=== PATIENT | female | born 1945 | race African-American/Black ===

== ENCOUNTER 2017-09-15 15:49 | Outpatient (CLI) | payer MEDICARE, MEDICAID ==
--- NOTE | 2017-09-15 19:19 | RAD ---
LUMBAR SPINE THREE LATERAL VIEWS: 09/15/17 INDICATION: Chronic low back pain. FINDINGS: There is no evidence of acute compression fracture or subluxation. There is mild degenerative changes throughout the lumbar spine. Vascular calcifications noted. IMPRESSION: No compression fracture or significant subluxation. No abnormal translational motion. POS: ELIEZER
--- NOTE | 2017-09-15 20:37 | MRI ---
MRI LUMBAR SPINE WITHOUT CONTRAST 09/15/17 Multiplanar and multisequential imaging lumbar spine obtained. HISTORY: Lumbar radiculopathy. Chronic low back pain. FINDINGS: The lumbar vertebrae maintain normal height and alignment. Vertebral body signal is normal. No eviden ce of edema or inflammatory process. No significant disc bulge at L1-2. At L2-3, mild disc bulge. No central canal or foraminal stenosis. At L3-4, mild disc bulge. Mild facet arthrosis. Mild central canal stenosis. At L4-5, there is an annular fissure with a diffuse disc bulge. Mild facet and ligamentous hypertroph y. Mild to moderate central canal stenosis. At L5-S1, diffuse disc bulge with central disc protrusion. Thecal sac is congenitally small, however this broad based bulge and protrusion impinges on both traversing S1 nerve roots. Bilateral foraminal encroachment more pronounced on the left due to the diffuse disc bulge. 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 This may represent a Tarlov cy st. It does not abut the facet joint and therefore, I do not confirm a synovial cyst. IMPRESSION: 1. Central canal stenosis at L4-5 and L5-S1 as described above due to diffuse disc bulge and dis c protrusions. Foraminal encroachment on the left at L5-S1. 2. 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 3. Incidentally noted are numerous renal cystic lesions bilaterally. There is also a cystic lesi on seen in the spleen which is incompletely evaluated. POS: LEVI
== END 2017-09-15 15:50 | disposition home or self-care (01) ==
LOC: MRI 15:49
PROVIDERS: ATTEND Neurological Surgery
DX: M51.16 Intervertebral disc disorders with radiculopathy, lumbar region (principal); M48.061 Spinal stenosis, lumbar region without neurogenic claudication; L05.91 Pilonidal cyst without abscess
CPT/HCPCS: 72100; 72148

== ENCOUNTER 2019-10-18 13:50 | Outpatient (CLI) | payer MEDICARE, MEDICAID ==
--- NOTE | 2019-10-18 14:32 | ULT ---
EXAM: Left lower extremity venous ultrasound HISTORY: Left lower extremity pain and edema COMPARISON: None TECHNIQUE: Multiplanar grayscale and color Doppler images were obtained in a left lower extremity marino ous ultrasound. Spectral analysis of the Doppler waveforms were performed. FINDINGS: The common femoral vein, profunda femoral vein, superficial femoral vein, and popliteal vei n are normal in appearance without visible thrombus. These vessels demonstrate normal compression, flow, and augmentation. The posterior tibial vein and greater saphenous vein are patent without evidence of thrombus. IMPRESSION: No evidence of DVT.
== END 2019-10-18 13:51 | disposition home or self-care (01) ==
LOC: BICULT 13:50
PROVIDERS: ATTEND Specialist
DX: I82.502 Chronic embolism and thrombosis of unspecified deep veins of left lower extremity (principal)

== ENCOUNTER 2021-09-26 15:13 | Inpatient (IN) | payer MEDICARE, OTHER ==
[2021-09-26] MEDS ORDERED: Acetaminophen 500 MG TAB ONE (16:02)
[2021-09-26] MEDS ORDERED: Ondansetron PF 4 MG/2 ML Vial ONE ×2 (16:02→20:11)
[2021-09-26 16:10] LABS: #Lymphocytes 1.7 thou/uL (1.20-3.40); #Monocytes 0.8 thou/uL (0.11-0.59); #Neutrophils 3.3 thou/uL (1.40-6.50); %Basophils 0.7 % (0.0-1.0); %Eosinophils 0.1 % (0.0-10.0); %Lymphocytes 29.5 % (21.0-51.0); %Monocytes 13.9 % (0.0-10.0); %Neutrophils 55.9 % (42.0-75.0); Hemoglobin 15.4 g/dL (12.0-16.0); Mean Corpuscular HGB CONC 32.7 g/dL (32.0-36.0); Mean Corpuscular Hemoglobin 30.3 pg (27.0-31.0); Mean Corpuscular Volume 92.8 fL (78.0-98.0); Mean Platelet Volume 8.6 fL (7.4-10.4); Platelet Count 177 thou/uL (130-400); RBC Distribution Width 13.9 % (11.5-14.5); Red Blood Cell (RBC) Count 5.08 mill/uL (4.20-5.40); White Blood Cell (WBC) Count 5.8 thou/uL (4.8-10.8)
[2021-09-26 16:34] LABS: ALT (SGPT) 15 U/L (8-55); AST (SGOT) 26 U/L (5-34); Albumin 3.6 g/dL (3.4-4.8); Alkaline Phosphatase 64 U/L (40-110); Anion Gap 19 mmol/L (10-20); BUN (Urea Nitrogen) 45 mg/dL (9.8-20.1); Bilirubin, Total 0.8 mg/dL (0.2-1.2); CK (CPK) 140 U/L (29-168); Calc. Creatinine Clearance 0 mL/min (70-130); Calcium 8.8 mg/dL (7.8-10.44); Carbon Dioxide 18 mmol/L (23-31); Chloride 99 mmol/L (98-107); Globulin 3.6 g/dL (2.4-3.5); Glucose 90 mg/dL (83-110); Lipase 21 U/L (8-78); Potassium 3.8 mmol/L (3.5-5.1); Protein, Total 7.2 g/dL (5.8-8.1); Sodium 132 mmol/L (136-145)
[2021-09-26 16:49] LABS: SARS-CoV-2 NAA Rapid Test DETECTED (NotDetected)
[2021-09-26 17:05] LABS: CKMB 2.3 ng/mL (0-6.6)
[2021-09-26] MEDS ORDERED: Azithromycin 500 MG VIAL ONE (17:33)
[2021-09-26] MEDS ORDERED: cefTRIAXone\\ROCEPHIN 2 GM VIAL ONE (17:33)
[2021-09-26] MEDS ORDERED: Ondansetron ODT 4 MG TAB PO PRN (18:36)
[2021-09-26] MEDS ORDERED: Ondansetron PF 4 MG/2 ML Vial IVP PRN (18:36)
[2021-09-26] MEDS ORDERED: Dexamethasone 4 MG TAB PO SCH (19:15)
[2021-09-26 19:49] LABS: Troponin I 0.341 ng/mL (< 0.028)
[2021-09-26] MEDS ORDERED: Sodium Chloride 0.9% 1,000 ML IV SCH (21:45)
[2021-09-26 22:09] VITALS: BMI 28.4
[2021-09-26] MEDS: Gabapentin 300 MG CAP PO SCH (22:41)
[2021-09-26] MEDS: Atorvastatin Calcium 40 MG TAB PO SCH (22:41)
[2021-09-26] MEDS: Cilostazol 100 MG TAB PO SCH (22:42)
[2021-09-26] MEDS: Metoprolol Tartrate 50 MG TAB PO SCH (22:42)
[2021-09-26] MEDS: Heparin 5,000 UNITS/ML VIAL SC SCH (22:42)
[2021-09-26 22:51] LABS: Troponin I 0.231 ng/mL (< 0.028)
[2021-09-26] MEDS: Pantoprazole 40 MG GRANULES PACKET PO SCH (23:15)
[2021-09-27 04:53] LABS: #Lymphocytes 0.7 thou/uL (1.20-3.40); #Monocytes 0.5 thou/uL (0.11-0.59); #Neutrophils 5.7 thou/uL (1.40-6.50); %Basophils 0.3 % (0.0-1.0); %Eosinophils 0.2 % (0.0-10.0); %Lymphocytes 10.5 % (21.0-51.0); %Monocytes 7.5 % (0.0-10.0); %Neutrophils 81.6 % (42.0-75.0); Hemoglobin 15.6 g/dL (12.0-16.0); Mean Corpuscular HGB CONC 32.3 g/dL (32.0-36.0); Mean Corpuscular Hemoglobin 29.9 pg (27.0-31.0); Mean Corpuscular Volume 92.8 fL (78.0-98.0); Mean Platelet Volume 8.6 fL (7.4-10.4); Platelet Count 125 thou/uL (130-400); RBC Distribution Width 13.7 % (11.5-14.5); Red Blood Cell (RBC) Count 5.21 mill/uL (4.20-5.40)
[2021-09-27 05:13] LABS: Anion Gap 16 mmol/L (10-20); BUN (Urea Nitrogen) 46 mg/dL (9.8-20.1); Calc. Creatinine Clearance 25 mL/min (70-130); Calcium 8.3 mg/dL (7.8-10.44); Carbon Dioxide 17 mmol/L (23-31); Chloride 103 mmol/L (98-107); Glucose 84 mg/dL (83-110); Potassium 3.7 mmol/L (3.5-5.1); Sodium 132 mmol/L (136-145)
[2021-09-27] MEDS: Heparin 5,000 UNITS/ML VIAL SC SCH ×3 (08:08→20:16)
[2021-09-27] MEDS: Cilostazol 100 MG TAB PO SCH ×2 (08:08→20:15)
[2021-09-27] MEDS: Gabapentin 300 MG CAP PO SCH ×3 (08:09→20:15)
[2021-09-27] MEDS: Amlodipine 5 MG TAB PO SCH (08:10)
[2021-09-27] MEDS: Dexamethasone 4 MG TAB PO SCH (08:10)
[2021-09-27] MEDS: Pantoprazole 40 MG GRANULES PACKET PO SCH (08:10)
[2021-09-27] MEDS: Metoprolol Tartrate 50 MG TAB PO SCH ×2 (08:10→20:15)
[2021-09-27] MEDS ORDERED: Sodium Chloride 0.9% 1,000 ML IV SCH (08:30)
[2021-09-27] MEDS ORDERED: Dextrose 5% in Water 1,000 ML IV PRN (09:48)
[2021-09-27] MEDS ORDERED: Dextrose 50% Abboject 50 ML SYRINGE SLOW IVP PRN (09:48)
[2021-09-27] MEDS ORDERED: HumaLOG 300 UNITS/3 ML VIAL SC PRN (09:48)
[2021-09-27] MEDS ORDERED: Fluticasone Propionate Nasal Spray 16 gm Bottle NASAL SCH (11:30)
[2021-09-27] MEDS ORDERED: Ergocalciferol 1.25 MG(50,000 UNITS) CAP PO SCH (12:00)
[2021-09-27] MEDS ORDERED: Metamucil PACK PO SCH (14:30)
[2021-09-27] MEDS: HumaLOG 300 UNITS/3 ML VIAL SC PRN (16:39)
[2021-09-27] MEDS: traMADol HCl 50 MG TAB PO PRN (16:45)
[2021-09-27] MEDS: Atorvastatin Calcium 40 MG TAB PO SCH (20:15)
[2021-09-28] MEDS: Metamucil PACK PO SCH (08:15)
[2021-09-28] MEDS: Gabapentin 300 MG CAP PO SCH ×3 (08:15→21:21)
[2021-09-28] MEDS: Metoprolol Tartrate 50 MG TAB PO SCH ×2 (08:15→21:21)
[2021-09-28] MEDS: Dexamethasone 4 MG TAB PO SCH (08:15)
[2021-09-28] MEDS: Heparin 5,000 UNITS/ML VIAL SC SCH ×3 (08:15→21:00)
[2021-09-28] MEDS: Amlodipine 5 MG TAB PO SCH (08:15)
[2021-09-28] MEDS: Pantoprazole 40 MG GRANULES PACKET PO SCH (08:16)
[2021-09-28] MEDS: Cilostazol 100 MG TAB PO SCH ×2 (08:16→21:21)
[2021-09-28] MEDS: Aspirin 81 mg Enteric Coated Tablet PO SCH (08:16)
[2021-09-28 10:14] LABS: Anion Gap 13 mmol/L (10-20); BUN (Urea Nitrogen) 44 mg/dL (9.8-20.1); Calc. Creatinine Clearance 33 mL/min (70-130); Calcium 8.2 mg/dL (7.8-10.44); Carbon Dioxide 21 mmol/L (23-31); Chloride 107 mmol/L (98-107); Glucose 128 mg/dL (83-110); Potassium 3.6 mmol/L (3.5-5.1); Sodium 137 mmol/L (136-145)
[2021-09-28] MEDS: traMADol HCl 50 MG TAB PO PRN (17:21)
[2021-09-28] MEDS: Atorvastatin Calcium 40 MG TAB PO SCH (21:21)
[2021-09-29 06:27] LABS: #Lymphocytes 0.5 thou/uL (1.20-3.40); #Monocytes 0.8 thou/uL (0.11-0.59); #Neutrophils 5.9 thou/uL (1.40-6.50); %Basophils 0.1 % (0.0-1.0); %Eosinophils 0.1 % (0.0-10.0); %Lymphocytes 6.2 % (21.0-51.0); %Monocytes 10.7 % (0.0-10.0); %Neutrophils 82.8 % (42.0-75.0); Hemoglobin 12.9 g/dL (12.0-16.0); Mean Corpuscular HGB CONC 33.2 g/dL (32.0-36.0); Mean Corpuscular Hemoglobin 30.3 pg (27.0-31.0); Mean Corpuscular Volume 91.4 fL (78.0-98.0); Mean Platelet Volume 8.6 fL (7.4-10.4); Platelet Count 149 thou/uL (130-400); RBC Distribution Width 13.6 % (11.5-14.5); Red Blood Cell (RBC) Count 4.25 mill/uL (4.20-5.40); White Blood Cell (WBC) Count 7.2 thou/uL (4.8-10.8)
[2021-09-29 06:50] LABS: Anion Gap 13 mmol/L (10-20); BUN (Urea Nitrogen) 38 mg/dL (9.8-20.1); Calc. Creatinine Clearance 38 mL/min (70-130); Calcium 7.9 mg/dL (7.8-10.44); Carbon Dioxide 18 mmol/L (23-31); Chloride 107 mmol/L (98-107); Glucose 116 mg/dL (83-110); Potassium 3.8 mmol/L (3.5-5.1); Sodium 134 mmol/L (136-145)
[2021-09-29] MEDS: Dexamethasone 4 MG TAB PO SCH (08:37)
[2021-09-29] MEDS: Gabapentin 300 MG CAP PO SCH ×3 (08:37→20:41)
[2021-09-29] MEDS: Cilostazol 100 MG TAB PO SCH ×2 (08:37→20:41)
[2021-09-29] MEDS: Metoprolol Tartrate 50 MG TAB PO SCH ×2 (08:37→20:41)
[2021-09-29] MEDS: Amlodipine 5 MG TAB PO SCH (08:37)
[2021-09-29] MEDS: Aspirin 81 mg Enteric Coated Tablet PO SCH (08:37)
[2021-09-29] MEDS: Pantoprazole 40 MG GRANULES PACKET PO SCH (08:38)
[2021-09-29] MEDS: Metamucil PACK PO SCH (08:38)
[2021-09-29] MEDS: Heparin 5,000 UNITS/ML VIAL SC SCH ×3 (08:38→20:41)
[2021-09-29] MEDS: Acetaminophen 325 MG TAB PO PRN (13:04)
[2021-09-29] MEDS: HumaLOG 300 UNITS/3 ML VIAL SC PRN (17:45)
[2021-09-29] MEDS: Atorvastatin Calcium 40 MG TAB PO SCH (20:41)
[2021-09-30 07:49] LABS: Anion Gap 12 mmol/L (10-20); BUN (Urea Nitrogen) 32 mg/dL (9.8-20.1); Calc. Creatinine Clearance 43 mL/min (70-130); Calcium 7.8 mg/dL (7.8-10.44); Carbon Dioxide 20 mmol/L (23-31); Chloride 107 mmol/L (98-107); Glucose 111 mg/dL (83-110); Potassium 3.8 mmol/L (3.5-5.1); Sodium 135 mmol/L (136-145)
[2021-09-30] MEDS: Dexamethasone 4 MG TAB PO SCH (08:16)
[2021-09-30] MEDS: Aspirin 81 mg Enteric Coated Tablet PO SCH (08:16)
[2021-09-30] MEDS: Metoprolol Tartrate 50 MG TAB PO SCH (08:16)
[2021-09-30] MEDS: Heparin 5,000 UNITS/ML VIAL SC SCH ×2 (08:16→14:30)
[2021-09-30] MEDS: Pantoprazole 40 MG GRANULES PACKET PO SCH (08:16)
[2021-09-30] MEDS: Gabapentin 300 MG CAP PO SCH ×2 (08:17→14:39)
[2021-09-30] MEDS: Acetaminophen 325 MG TAB PO PRN (08:17)
[2021-09-30] MEDS: Amlodipine 5 MG TAB PO SCH (08:17)
[2021-09-30] MEDS ORDERED: FLU VACC QS2021-22(65YR UP)/PF 240 MCG/0.7 ML SYRINGE IM ONE (09:00)
[2021-09-30] MEDS: Cilostazol 100 MG TAB PO SCH (09:43)
[2021-09-30] MEDS: traMADol HCl 50 MG TAB PO PRN (09:43)
[2021-09-30] MEDS: Metamucil PACK PO SCH (09:43)
[2021-09-30 17:57] VITALS: BP 120/69; TEMP 98
== END 2021-09-30 16:08 | disposition home or self-care (01) | DRG 177 ==
LOC: ERS 15:13 → 2NO 17:49 → OBSVTOIN 18:00 → 2SW 09-27 06:39 → T4-B 09-28 09:48 → T4-A 09-28 15:57 → T4-B 09-28 15:58
PROVIDERS: ADMIT Family Medicine; ATTEND Family Medicine
PROC: 8E0ZXY6 Isolation (ICD-10-PCS; principal; 2021-09-26)
PROC: 3E0DX3Z Introduction of Anti-inflammatory into Mouth and Pharynx, External Approach (ICD-10-PCS; 2021-09-26)
DX: U07.1 COVID-19 (principal); J12.82 Pneumonia due to coronavirus disease 2019; J96.01 Acute respiratory failure with hypoxia; N17.9 Acute kidney failure, unspecified; I24.8 Other forms of acute ischemic heart disease; F17.210 Nicotine dependence, cigarettes, uncomplicated; Z23 Encounter for immunization; E78.5 Hyperlipidemia, unspecified; F32.A Depression, unspecified; F41.9 Anxiety disorder, unspecified; G89.29 Other chronic pain; M48.00 Spinal stenosis, site unspecified; M81.0 Age-related osteoporosis without current pathological fracture; N18.30 Chronic kidney disease, stage 3 unspecified; E11.22 Type 2 diabetes mellitus with diabetic chronic kidney disease; E11.51 Type 2 diabetes mellitus with diabetic peripheral angiopathy without gangrene; I12.9 Hypertensive chronic kidney disease with stage 1 through stage 4 chronic kidney disease, or unspecified chronic kidney disease; Z91.040 Latex allergy status; Z88.8 Allergy status to other drugs, medicaments and biological substances; Z79.82 Long term (current) use of aspirin; Z79.899 Other long term (current) drug therapy; Z79.84 Long term (current) use of oral hypoglycemic drugs; Z79.52 Long term (current) use of systemic steroids; Z90.710 Acquired absence of both cervix and uterus
CPT/HCPCS: 0240U; 36415; 36416; 71045; 74176; 80048; 80053; 82550; 82553; 83605; 83690; 83735; 83880; 84484; 85025; 87040; 90471; 90662; 93005; 94760; 96365; 96366; 96367; 96375; 96376; G0008; J0456; J0696; J1644; J1815; J2405; J7050; J8540

== ENCOUNTER 2021-10-09 10:46 | Inpatient (IN) | payer MEDICARE, MEDICAID ==
[~2021-10-09 10:46] MED LIST: Iopamidol 370 76% 100 ML VIAL ONE
[2021-10-09] MEDS ORDERED: Dexamethasone 10 MG/ML VIAL ONE (11:05)
[2021-10-09] MEDS ORDERED: Dexamethasone 4 mg/ml Vial ONE (11:05)
[2021-10-09 11:20] LABS: Hemoglobin 13.5 g/dL (12.0-16.0); Mean Corpuscular HGB CONC 33.1 g/dL (32.0-36.0); Mean Corpuscular Hemoglobin 30.8 pg (27.0-31.0); Red Blood Cell (RBC) Count 4.37 mill/uL (4.20-5.40); White Blood Cell (WBC) Count 16.2 thou/uL (4.8-10.8)
[2021-10-09 11:20] LABS: Actual Bicarbonate (HCO3a) 15.6 mEq/L (22-28); Analyzer IN Cardio ER; Base Excess (BEa) -6.9 mEq/L (-2.0 to +3.0); Calcium, Ionized (arterial) 1.19 mmol/L (1.12-1.30); Carboxyhemoglobin (COHb) 1.2 gm% (0.0-3.0); Hemoglobin (Hb) 12.7 g/dL (12.0-16.0); pH, Arterial 7.43 (7.35-7.45)
[2021-10-09 11:22] LABS: ALV-art Gradient 212.025 mmHg (0-20); CO2 Tension 23.9 mmHg (35.0-45.0); O2 Tension (PaO2), arterial 43.3 mmHg (> 70.0); Puncture Site RBA
[2021-10-09 11:38] LABS: ALT (SGPT) 19 U/L (8-55); AST (SGOT) 30 U/L (5-34); Albumin 2.9 g/dL (3.4-4.8); Alkaline Phosphatase 210 U/L (40-110); Anion Gap 17 mmol/L (10-20); BUN (Urea Nitrogen) 30 mg/dL (9.8-20.1); Calc. Creatinine Clearance 0 mL/min (70-130); Calcium 9.3 mg/dL (7.8-10.44); Carbon Dioxide 17 mmol/L (23-31); Chloride 107 mmol/L (98-107); Glucose 106 mg/dL (83-110); Potassium 3.8 mmol/L (3.5-5.1); Protein, Total 6.9 g/dL (5.8-8.1); Sodium 137 mmol/L (136-145)
[2021-10-09 11:39] LABS: #Eosinphils 0.2 thou/uL (0.0-0.7); #Lymphocytes 2.3 thou/uL (1.20-3.40); #Neutrophils 12.6 thou/uL (1.40-6.50); %Basophils 0.3 % (0.0-1.0); %Eosinophils 1.1 % (0.0-10.0); %Lymphocytes 13.9 % (21.0-51.0); %Monocytes 6.4 % (0.0-10.0); %Neutrophils 78.3 % (42.0-75.0); Band 4 % (5-11); Burr Cells SLIGHT = 2-5 cells (100X) (0-1/hpf); Eosinophils 4 % (0-10); Lymphocytes 14 % (21-51); MDiff Complete? YES; Mean Platelet Volume 8.4 fL (7.4-10.4); Monocytes 5 % (0-10); Myelocyte 1 % (0-0); Neutrophil 72 % (42-75); Platelet Count 87 thou/uL (130-400); Platelet Morphology Comment Appears Decreased; RBC Distribution Width 16.3 % (11.5-14.5); Schistocytes SLIGHT = 2-5 cells (100X) (0-1/hpf)
[2021-10-09 11:44] LABS: ALT (SGPT) 18 U/L (8-55); AST (SGOT) 30 U/L (5-34); Alkaline Phosphatase 219 U/L (40-110); Anion Gap 16 mmol/L (10-20); BUN (Urea Nitrogen) 31 mg/dL (9.8-20.1); Bilirubin, Total 3.1 mg/dL (0.2-1.2); Calc. Creatinine Clearance 0 mL/min (70-130); Calcium 9.1 mg/dL (7.8-10.44); Carbon Dioxide 18 mmol/L (23-31); Chloride 107 mmol/L (98-107); Globulin 3.9 g/dL (2.4-3.5); Glucose 106 mg/dL (83-110); Lipase 27 U/L (8-78); Magnesium 1.4 mg/dL (1.6-2.6); Potassium 3.9 mmol/L (3.5-5.1); Protein, Total 6.9 g/dL (5.8-8.1); Sodium 137 mmol/L (136-145)
[2021-10-09] MEDS ORDERED: Lorazepam 2 MG/ML VIAL ONE (11:47)
[2021-10-09 12:32] LABS: CKMB 13.1 ng/mL (0-6.6)
[2021-10-09] MEDS ORDERED: Dextrose 5% in Water 1,000 ML IV PRN (13:10)
[2021-10-09] MEDS ORDERED: Dextrose 50% Abboject 50 ML SYRINGE SLOW IVP PRN (13:10)
[2021-10-09] MEDS ORDERED: HumaLOG 300 UNITS/3 ML VIAL SC PRN (13:10)
[2021-10-09] MEDS ORDERED: Acetaminophen 650 MG Suppository PR PRN (13:10)
[2021-10-09] MEDS ORDERED: Ondansetron ORAL SOLN. 4 MG/5 ML UDCUP PO PRN (13:16)
[2021-10-09] MEDS ORDERED: Heparin 10,000 UNITS/ 10 ML VIAL SLOW IVP SCH (13:45)
[2021-10-09] MEDS ORDERED: Heparin 25,000 units/D5W 500 ML IVPB SCH (13:45)
[2021-10-09 14:21] LABS: Hemoglobin 12.4 g/dL (12.0-16.0); Platelet Count 75 thou/uL (130-400)
[2021-10-09 14:32] LABS: INR-International Normal Ratio 1.5; PTT 29.9 sec (22.9-36.1)
[2021-10-09 14:59] LABS: Critical Call Chem Troponin I RESULT DECREASING; Troponin I 2.717 ng/mL (< 0.028)
[2021-10-09] MEDS ORDERED: Heparin 5,000 UNITS/ML VIAL SC SCH ×2 (15:00→21:00)
[2021-10-09] MEDS ORDERED: BARICITINIB 2 MG TAB PO SCH (15:00)
[2021-10-09] MEDS ORDERED: traMADol HCl 50 MG TAB PO PRN (15:29)
[2021-10-09] MEDS ORDERED: Gabapentin 300 MG CAP PO PRN (15:29)
[2021-10-09] MEDS ORDERED: Polyethylene Glycol 3350 17 GM Packet PO PRN (15:29)
[2021-10-09] MEDS ORDERED: Alendronate Sodium 70 mg Tablet PO SCH (15:30)
[2021-10-09] MEDS ORDERED: Lactated Ringer's 500 ML IV SCH (16:15)
[2021-10-09] MEDS ORDERED: Cilostazol 100 MG TAB PO SCH (16:30)
[2021-10-09] MEDS ORDERED: Magnesium 2 GM/50 ML 2 GM in Premix Bag 1 BAG IVPB SCH (16:30)
[2021-10-09] MEDS ORDERED: Magnesium Sulfate 2 GM in Sodium Chloride 0.9% 100 ML IVPB SCH (16:30)
[2021-10-09] MEDS: Famotidine 20 MG TAB PO SCH (17:08)
[2021-10-09] MEDS: Lactated Ringer's 1,000 ML IV SCH (17:09)
[2021-10-09 17:50] LABS: Troponin I 2.525 ng/mL (< 0.028)
[2021-10-09 17:52] LABS: Lactic Acid 1.6 mmol/L (0.5-2.2)
[2021-10-09] MEDS: Metoprolol Tartrate 50 MG TAB PO SCH (20:32)
[2021-10-09] MEDS: Heparin 5,000 UNITS/ML VIAL SC SCH (20:47)
[2021-10-10] MEDS: Lactated Ringer's 1,000 ML IV SCH ×2 (01:01→19:30)
[2021-10-10 04:04] LABS: Anion Gap 12 mmol/L (10-20); BUN (Urea Nitrogen) 30 mg/dL (9.8-20.1); Calc. Creatinine Clearance 47 mL/min (70-130); Calcium 8.7 mg/dL (7.8-10.44); Carbon Dioxide 19 mmol/L (23-31); Chloride 110 mmol/L (98-107); Glucose 109 mg/dL (83-110); Magnesium 2.1 mg/dL (1.6-2.6); Potassium 4.2 mmol/L (3.5-5.1); Sodium 137 mmol/L (136-145)
[2021-10-10 04:14] LABS: Hemoglobin 11.6 g/dL (12.0-16.0); Hypochromia SLIGHT = 6-15 cells (100X) (0-5/hpf); Lymphocytes 11 % (21-51); MDiff Complete? YES; Mean Corpuscular HGB CONC 33.6 g/dL (32.0-36.0); Mean Corpuscular Volume 92.3 fL (78.0-98.0); Monocytes 5 % (0-10); Neutrophil 84 % (42-75); Platelet Count 62 thou/uL (130-400); Platelet Morphology Comment Appears Decreased; RBC Distribution Width 15.6 % (11.5-14.5); Red Blood Cell (RBC) Count 3.74 mill/uL (4.20-5.40); White Blood Cell (WBC) Count 7.9 thou/uL (4.8-10.8)
[2021-10-10] MEDS ORDERED: Dexamethasone 10 MG/ML VIAL SLOW IVP SCH (09:00)
[2021-10-10] MEDS ORDERED: Dexamethasone 10 MG in Sodium Chloride 0.9% 50 ML IVPB SCH (09:00)
[2021-10-10] MEDS ORDERED: metFORMIN 500 MG TAB PO SCH (09:00)
[2021-10-10] MEDS: Heparin 5,000 UNITS/ML VIAL SC SCH ×2 (09:59→20:56)
[2021-10-10] MEDS: Fluticasone Propionate Nasal Spray 16 gm Bottle NASAL SCH (09:59)
[2021-10-10] MEDS: Amlodipine 5 MG TAB PO SCH (11:02)
[2021-10-10] MEDS: Losartan 25 MG TAB PO SCH (11:04)
[2021-10-10] MEDS: BARICITINIB 2 MG TAB PO SCH (11:04)
[2021-10-10] MEDS: Aspirin 81 mg Enteric Coated Tablet PO SCH (11:04)
[2021-10-10] MEDS: Hydrochlorothiazide 25 MG TAB PO SCH (11:05)
[2021-10-10] MEDS: Metoprolol Tartrate 50 MG TAB PO SCH ×2 (11:07→20:56)
[2021-10-10] MEDS: Atorvastatin Calcium 40 MG TAB PO SCH (11:07)
[2021-10-10] MEDS: Dexamethasone 10 MG/ML VIAL SLOW IVP SCH (11:07)
[2021-10-10] MEDS: Famotidine 20 MG TAB PO SCH (11:19)
[2021-10-10] MEDS: Acetaminophen 325 MG TAB PO PRN (14:37)
[2021-10-11 04:17] LABS: #Lymphocytes 0.8 thou/uL (1.20-3.40); #Monocytes 0.6 thou/uL (0.11-0.59); #Neutrophils 4.8 thou/uL (1.40-6.50); %Basophils 0.3 % (0.0-1.0); %Eosinophils 0.3 % (0.0-10.0); %Lymphocytes 12.7 % (21.0-51.0); %Monocytes 9.9 % (0.0-10.0); %Neutrophils 76.8 % (42.0-75.0); Hemoglobin 9.5 g/dL (12.0-16.0); Mean Corpuscular HGB CONC 32.7 g/dL (32.0-36.0); Mean Corpuscular Hemoglobin 30.4 pg (27.0-31.0); Mean Platelet Volume 9.2 fL (7.4-10.4); Platelet Count 70 thou/uL (130-400); RBC Distribution Width 15.3 % (11.5-14.5); Red Blood Cell (RBC) Count 3.14 mill/uL (4.20-5.40); White Blood Cell (WBC) Count 6.2 thou/uL (4.8-10.8)
[2021-10-11 04:50] LABS: Anion Gap 13 mmol/L (10-20); BUN (Urea Nitrogen) 36 mg/dL (9.8-20.1); Calc. Creatinine Clearance 43 mL/min (70-130); Calcium 8.3 mg/dL (7.8-10.44); Carbon Dioxide 18 mmol/L (23-31); Cardiac Risk 3.6 (Less than 4.5); Chloride 109 mmol/L (98-107); Cholesterol 152 mg/dl (< 200 Desired); Glucose 95 mg/dL (83-110); HDL Cholesterol 42 mg/dL (>60 Neg Risk); LDL Cholesterol, Calculated 92 mg/dL; Potassium 4.3 mmol/L (3.5-5.1); Sodium 136 mmol/L (136-145); Triglycerides 92 mg/dL (Less than 150)
[2021-10-11] MEDS: traMADol HCl 50 MG TAB PO PRN ×2 (05:20→14:14)
[2021-10-11] MEDS: Atorvastatin Calcium 40 MG TAB PO SCH ×2 (09:52→20:37)
[2021-10-11] MEDS: Losartan 25 MG TAB PO SCH (09:52)
[2021-10-11] MEDS: Famotidine 20 MG TAB PO SCH (09:52)
[2021-10-11] MEDS: Aspirin 81 mg Enteric Coated Tablet PO SCH (09:52)
[2021-10-11] MEDS: Dexamethasone 10 MG/ML VIAL SLOW IVP SCH (09:52)
[2021-10-11] MEDS: BARICITINIB 2 MG TAB PO SCH (09:52)
[2021-10-11] MEDS: Amlodipine 5 MG TAB PO SCH (09:53)
[2021-10-11] MEDS: Hydrochlorothiazide 25 MG TAB PO SCH (09:53)
[2021-10-11] MEDS: Fluticasone Propionate Nasal Spray 16 gm Bottle NASAL SCH (09:54)
[2021-10-11] MEDS: Heparin 5,000 UNITS/ML VIAL SC SCH ×2 (09:54→20:33)
[2021-10-11] MEDS: Metoprolol Tartrate 50 MG TAB PO SCH ×2 (09:55→20:36)
[2021-10-11] MEDS: Lactated Ringer's 1,000 ML IV SCH (12:48)
[2021-10-11] MEDS: Acetaminophen 325 MG TAB PO PRN (14:14)
[2021-10-11 15:41] LABS: Magnesium 1.9 mg/dL (1.6-2.6)
[2021-10-12 03:37] LABS: Hemoglobin 10.1 g/dL (12.0-16.0); Platelet Count 86 thou/uL (130-400)
[2021-10-12 04:03] LABS: Anion Gap 13 mmol/L (10-20); BUN (Urea Nitrogen) 30 mg/dL (9.8-20.1); Calc. Creatinine Clearance 51 mL/min (70-130); Calcium 8.6 mg/dL (7.8-10.44); Carbon Dioxide 19 mmol/L (23-31); Chloride 107 mmol/L (98-107); Glucose 89 mg/dL (83-110); Magnesium 1.9 mg/dL (1.6-2.6); Potassium 4.2 mmol/L (3.5-5.1); Sodium 135 mmol/L (136-145)
[2021-10-12] MEDS: Lactated Ringer's 1,000 ML IV SCH (08:48)
[2021-10-12] MEDS: Dexamethasone 10 MG/ML VIAL SLOW IVP SCH (08:48)
[2021-10-12] MEDS: Losartan 25 MG TAB PO SCH (08:49)
[2021-10-12] MEDS: BARICITINIB 2 MG TAB PO SCH (08:49)
[2021-10-12] MEDS: Famotidine 20 MG TAB PO SCH (08:49)
[2021-10-12] MEDS: Metoprolol Tartrate 50 MG TAB PO SCH ×2 (08:50→20:02)
[2021-10-12] MEDS: Hydrochlorothiazide 25 MG TAB PO SCH (08:50)
[2021-10-12] MEDS: Amlodipine 5 MG TAB PO SCH (08:50)
[2021-10-12] MEDS: traMADol HCl 50 MG TAB PO PRN (08:51)
[2021-10-12] MEDS: Aspirin 81 mg Enteric Coated Tablet PO SCH (08:51)
[2021-10-12] MEDS: Fluticasone Propionate Nasal Spray 16 gm Bottle NASAL SCH (15:23)
[2021-10-12] MEDS: Atorvastatin Calcium 40 MG TAB PO SCH (20:04)
[2021-10-13] MEDS: Lactated Ringer's 1,000 ML IV SCH ×2 (01:43→23:04)
[2021-10-13 04:23] LABS: ALT (SGPT) 16 U/L (8-55); AST (SGOT) 21 U/L (5-34); Albumin 2.5 g/dL (3.4-4.8); Alkaline Phosphatase 187 U/L (40-110); Anion Gap 12 mmol/L (10-20); BUN (Urea Nitrogen) 32 mg/dL (9.8-20.1); Bilirubin, Total 2.2 mg/dL (0.2-1.2); Calc. Creatinine Clearance 49 mL/min (70-130); Calcium 8.8 mg/dL (7.8-10.44); Carbon Dioxide 22 mmol/L (23-31); Chloride 106 mmol/L (98-107); Globulin 3.2 g/dL (2.4-3.5); Glucose 64 mg/dL (83-110); Protein, Total 5.7 g/dL (5.8-8.1); Sodium 136 mmol/L (136-145)
[2021-10-13 08:29] LABS: #Eosinphils 0.2 thou/uL (0.0-0.7); #Lymphocytes 1.5 thou/uL (1.20-3.40); #Monocytes 0.5 thou/uL (0.11-0.59); #Neutrophils 6.5 thou/uL (1.40-6.50); %Basophils 0.2 % (0.0-1.0); %Eosinophils 1.8 % (0.0-10.0); %Lymphocytes 16.8 % (21.0-51.0); %Monocytes 6.3 % (0.0-10.0); Hemoglobin 10.8 g/dL (12.0-16.0); Mean Corpuscular HGB CONC 33.8 g/dL (32.0-36.0); Mean Corpuscular Hemoglobin 30.8 pg (27.0-31.0); Mean Corpuscular Volume 91.2 fL (78.0-98.0); Mean Platelet Volume 5.7 fL (7.4-10.4); Platelet Count 69 thou/uL (130-400); Red Blood Cell (RBC) Count 3.52 mill/uL (4.20-5.40); White Blood Cell (WBC) Count 8.6 thou/uL (4.8-10.8)
[2021-10-13] MEDS: Metoprolol Tartrate 50 MG TAB PO SCH ×2 (10:08→20:28)
[2021-10-13] MEDS: Amlodipine 5 MG TAB PO SCH (10:09)
[2021-10-13] MEDS: Aspirin 81 mg Enteric Coated Tablet PO SCH (10:09)
[2021-10-13] MEDS: Hydrochlorothiazide 25 MG TAB PO SCH (10:09)
[2021-10-13] MEDS: BARICITINIB 2 MG TAB PO SCH (10:09)
[2021-10-13] MEDS: Losartan 25 MG TAB PO SCH (10:09)
[2021-10-13] MEDS: Famotidine 20 MG TAB PO SCH (10:11)
[2021-10-13] MEDS: Dexamethasone 10 MG/ML VIAL SLOW IVP SCH (10:11)
[2021-10-13] MEDS: traMADol HCl 50 MG TAB PO PRN (14:11)
[2021-10-13] MEDS: Fluticasone Propionate Nasal Spray 16 gm Bottle NASAL SCH (18:37)
[2021-10-13] MEDS: Atorvastatin Calcium 40 MG TAB PO SCH (20:28)
[2021-10-14 03:54] LABS: Platelet Count 79 thou/uL (130-400)
[2021-10-14 04:03] LABS: ALT (SGPT) 17 U/L (8-55); AST (SGOT) 19 U/L (5-34); Albumin 2.6 g/dL (3.4-4.8); Alkaline Phosphatase 163 U/L (40-110); Anion Gap 13 mmol/L (10-20); BUN (Urea Nitrogen) 31 mg/dL (9.8-20.1); Bilirubin, Total 1.8 mg/dL (0.2-1.2); Calc. Creatinine Clearance 51 mL/min (70-130); Calcium 9.3 mg/dL (7.8-10.44); Carbon Dioxide 23 mmol/L (23-31); Chloride 104 mmol/L (98-107); Glucose 81 mg/dL (83-110); Protein, Total 5.6 g/dL (5.8-8.1); Sodium 136 mmol/L (136-145)
[2021-10-14] MEDS: Losartan 25 MG TAB PO SCH (08:09)
[2021-10-14] MEDS: Aspirin 81 mg Enteric Coated Tablet PO SCH (08:09)
[2021-10-14] MEDS: BARICITINIB 2 MG TAB PO SCH (08:09)
[2021-10-14] MEDS: Amlodipine 5 MG TAB PO SCH (08:09)
[2021-10-14] MEDS: Hydrochlorothiazide 25 MG TAB PO SCH (08:09)
[2021-10-14] MEDS: Famotidine 20 MG TAB PO SCH (08:09)
[2021-10-14] MEDS: Dexamethasone 10 MG/ML VIAL SLOW IVP SCH (08:10)
[2021-10-14] MEDS: Fluticasone Propionate Nasal Spray 16 gm Bottle NASAL SCH (08:10)
[2021-10-14] MEDS: Metoprolol Tartrate 50 MG TAB PO SCH ×2 (08:10→20:30)
[2021-10-14] MEDS ORDERED: Fondaparinux Sodium 2.5 MG/0.5 ML SYRINGE SC SCH (08:30)
[2021-10-14] MEDS: Acetaminophen 325 MG TAB PO PRN (08:35)
[2021-10-14 14:33] VITALS: BMI 25.7
[2021-10-14] MEDS: Gabapentin 300 MG CAP PO SCH ×2 (16:22→20:30)
[2021-10-14] MEDS: Atorvastatin Calcium 40 MG TAB PO SCH (20:30)
[2021-10-15] MEDS: Fondaparinux Sodium 2.5 MG/0.5 ML SYRINGE SC SCH (05:51)
[2021-10-15 06:46] LABS: Platelet Count 131 thou/uL (130-400)
[2021-10-15 07:07] LABS: ALT (SGPT) 21 U/L (8-55); AST (SGOT) 21 U/L (5-34); Albumin 2.7 g/dL (3.4-4.8); Alkaline Phosphatase 145 U/L (40-110); Anion Gap 15 mmol/L (10-20); BUN (Urea Nitrogen) 30 mg/dL (9.8-20.1); Bilirubin, Total 2.1 mg/dL (0.2-1.2); Calc. Creatinine Clearance 48 mL/min (70-130); Calcium 9.2 mg/dL (7.8-10.44); Carbon Dioxide 24 mmol/L (23-31); Chloride 103 mmol/L (98-107); Globulin 3.3 g/dL (2.4-3.5); Glucose 77 mg/dL (83-110); Potassium 4.3 mmol/L (3.5-5.1); Sodium 138 mmol/L (136-145)
[2021-10-15] MEDS: Losartan 25 MG TAB PO SCH (08:34)
[2021-10-15] MEDS: Metoprolol Tartrate 50 MG TAB PO SCH ×2 (08:34→21:31)
[2021-10-15] MEDS: Famotidine 20 MG TAB PO SCH (08:34)
[2021-10-15] MEDS: Hydrochlorothiazide 25 MG TAB PO SCH (08:34)
[2021-10-15] MEDS: BARICITINIB 2 MG TAB PO SCH (08:34)
[2021-10-15] MEDS: Aspirin 81 mg Enteric Coated Tablet PO SCH (08:34)
[2021-10-15] MEDS: Gabapentin 300 MG CAP PO SCH ×3 (08:35→21:31)
[2021-10-15] MEDS: Fluticasone Propionate Nasal Spray 16 gm Bottle NASAL SCH (08:35)
[2021-10-15] MEDS: Dexamethasone 10 MG/ML VIAL SLOW IVP SCH (08:35)
[2021-10-15] MEDS: Amlodipine 10 MG TAB PO SCH (08:36)
[2021-10-15] MEDS: Atorvastatin Calcium 40 MG TAB PO SCH (21:30)
[2021-10-15] MEDS: traMADol HCl 50 MG TAB PO PRN (21:30)
[2021-10-16] MEDS: Fondaparinux Sodium 2.5 MG/0.5 ML SYRINGE SC SCH (06:41)
[2021-10-16 06:56] LABS: Hemoglobin 11.9 g/dL (12.0-16.0); Platelet Count 193 thou/uL (130-400)
[2021-10-16 07:08] LABS: ALT (SGPT) 24 U/L (8-55); AST (SGOT) 23 U/L (5-34); Alkaline Phosphatase 137 U/L (40-110); Anion Gap 13 mmol/L (10-20); BUN (Urea Nitrogen) 31 mg/dL (9.8-20.1); Bilirubin, Total 1.7 mg/dL (0.2-1.2); Calc. Creatinine Clearance 44 mL/min (70-130); Calcium 9.2 mg/dL (7.8-10.44); Carbon Dioxide 24 mmol/L (23-31); Chloride 103 mmol/L (98-107); Globulin 3.7 g/dL (2.4-3.5); Glucose 78 mg/dL (83-110); Potassium 3.9 mmol/L (3.5-5.1); Protein, Total 6.7 g/dL (5.8-8.1); Sodium 136 mmol/L (136-145)
[2021-10-16] MEDS: Losartan 25 MG TAB PO SCH (08:02)
[2021-10-16] MEDS: Aspirin 81 mg Enteric Coated Tablet PO SCH (08:02)
[2021-10-16] MEDS: Dexamethasone 4 MG TAB PO SCH (08:03)
[2021-10-16] MEDS: Amlodipine 10 MG TAB PO SCH (08:03)
[2021-10-16] MEDS: BARICITINIB 2 MG TAB PO SCH (08:03)
[2021-10-16] MEDS: Hydrochlorothiazide 25 MG TAB PO SCH (08:04)
[2021-10-16] MEDS: Metoprolol Tartrate 50 MG TAB PO SCH ×2 (08:04→21:10)
[2021-10-16] MEDS: Gabapentin 300 MG CAP PO SCH ×3 (08:05→21:10)
[2021-10-16] MEDS: Famotidine 20 MG TAB PO SCH (08:08)
[2021-10-16] MEDS: Fluticasone Propionate Nasal Spray 16 gm Bottle NASAL SCH (08:09)
[2021-10-16] MEDS: HumaLOG 300 UNITS/3 ML VIAL SC PRN (16:28)
[2021-10-16] MEDS: Atorvastatin Calcium 40 MG TAB PO SCH (21:09)
[2021-10-17] MEDS: Fondaparinux Sodium 2.5 MG/0.5 ML SYRINGE SC SCH (06:15)
[2021-10-17] MEDS: Famotidine 20 MG TAB PO SCH (08:40)
[2021-10-17] MEDS: Amlodipine 10 MG TAB PO SCH (08:40)
[2021-10-17] MEDS: BARICITINIB 2 MG TAB PO SCH (08:41)
[2021-10-17] MEDS: Dexamethasone 4 MG TAB PO SCH (08:41)
[2021-10-17] MEDS: Gabapentin 300 MG CAP PO SCH ×3 (08:42→21:00)
[2021-10-17] MEDS: Aspirin 81 mg Enteric Coated Tablet PO SCH (08:43)
[2021-10-17] MEDS: Losartan 25 MG TAB PO SCH (08:43)
[2021-10-17] MEDS: Metoprolol Tartrate 50 MG TAB PO SCH ×2 (08:43→21:00)
[2021-10-17] MEDS: Hydrochlorothiazide 25 MG TAB PO SCH (08:43)
[2021-10-17] MEDS: Fluticasone Propionate Nasal Spray 16 gm Bottle NASAL SCH (08:44)
[2021-10-17] MEDS: traMADol HCl 50 MG TAB PO PRN (08:48)
[2021-10-17] MEDS: HumaLOG 300 UNITS/3 ML VIAL SC PRN (18:18)
[2021-10-17] MEDS: Atorvastatin Calcium 40 MG TAB PO SCH (20:59)
[2021-10-18] MEDS: Fondaparinux Sodium 2.5 MG/0.5 ML SYRINGE SC SCH (05:17)
[2021-10-18] MEDS: Metoprolol Tartrate 50 MG TAB PO SCH (10:15)
[2021-10-18] MEDS: Aspirin 81 mg Enteric Coated Tablet PO SCH (10:15)
[2021-10-18] MEDS: Famotidine 20 MG TAB PO SCH (10:15)
[2021-10-18] MEDS: Dexamethasone 4 MG TAB PO SCH (10:15)
[2021-10-18] MEDS: BARICITINIB 2 MG TAB PO SCH (10:16)
[2021-10-18] MEDS: Losartan 25 MG TAB PO SCH (10:16)
[2021-10-18] MEDS: Hydrochlorothiazide 25 MG TAB PO SCH (10:16)
[2021-10-18] MEDS: Gabapentin 300 MG CAP PO SCH (10:17)
[2021-10-18] MEDS: Fluticasone Propionate Nasal Spray 16 gm Bottle NASAL SCH (10:17)
[2021-10-18] MEDS: Amlodipine 10 MG TAB PO SCH (10:17)
[2021-10-18 13:41] VITALS: BP 128/79; TEMP 98
[2021-10-20 16:37] LABS: Heparin-Induced Ab (HITA) 0.103 OD (0.000-0.400)
== END 2021-10-18 14:30 | disposition home or self-care (01) | DRG 871 ==
LOC: ERS 10:46 → CCU 12:39 → IMCU/EMU 10-13 06:45 → T4-B 10-15 20:21
PROVIDERS: ADMIT Family Medicine; ATTEND Family Medicine
PROC: 5A09457 Assistance with Respiratory Ventilation, 24-96 Consecutive Hours, Continuous Positive Airway Pressure (ICD-10-PCS; principal; 2021-10-09)
PROC: 8E0ZXY6 Isolation (ICD-10-PCS; 2021-10-09)
PROC: XW0DXM6 Introduction of Baricitinib into Mouth and Pharynx, External Approach, New Technology Group 6 (ICD-10-PCS; 2021-10-09)
DX: A41.89 Other specified sepsis (principal); J96.01 Acute respiratory failure with hypoxia; U07.1 COVID-19; J12.82 Pneumonia due to coronavirus disease 2019; I21.4 Non-ST elevation (NSTEMI) myocardial infarction; E87.4 Mixed disorder of acid-base balance; J84.10 Pulmonary fibrosis, unspecified; K21.9 Gastro-esophageal reflux disease without esophagitis; E04.9 Nontoxic goiter, unspecified; F17.210 Nicotine dependence, cigarettes, uncomplicated; D69.6 Thrombocytopenia, unspecified; R13.10 Dysphagia, unspecified; E78.5 Hyperlipidemia, unspecified; F32.A Depression, unspecified; I12.9 Hypertensive chronic kidney disease with stage 1 through stage 4 chronic kidney disease, or unspecified chronic kidney disease; F41.9 Anxiety disorder, unspecified; E11.51 Type 2 diabetes mellitus with diabetic peripheral angiopathy without gangrene; E11.22 Type 2 diabetes mellitus with diabetic chronic kidney disease; G89.29 Other chronic pain; E83.42 Hypomagnesemia; N18.30 Chronic kidney disease, stage 3 unspecified; J43.9 Emphysema, unspecified; Z90.710 Acquired absence of both cervix and uterus; Z88.8 Allergy status to other drugs, medicaments and biological substances; Z91.040 Latex allergy status
CPT/HCPCS: 36415; 36416; 36600; 71045; 71275; 80048; 80053; 80061; 82553; 82728; 82805; 83605; 83690; 83735; 83880; 84145; 84484; 85014; 85018; 85025; 85049; 85384; 85610; 85730; 86140; 87040; 93005; 94660; 94799; 96374; 96375; J1100; J1644; J1652; J1815; J1956; J2060; J3475; J7120; J8540; Q9967

== ENCOUNTER 2021-10-28 10:52 | Inpatient (IN) | payer MEDICARE, OTHER ==
[2021-10-28 11:40] LABS: Hemoglobin 11.2 g/dL (12.0-16.0); Mean Corpuscular HGB CONC 32.1 g/dL (32.0-36.0); Mean Corpuscular Hemoglobin 30.9 pg (27.0-31.0); Mean Corpuscular Volume 96.3 fL (78.0-98.0); Mean Platelet Volume 8.7 fL (7.4-10.4); Platelet Count 196 thou/uL (130-400); RBC Distribution Width 16.6 % (11.5-14.5); Red Blood Cell (RBC) Count 3.61 mill/uL (4.20-5.40); White Blood Cell (WBC) Count 7.3 thou/uL (4.8-10.8)
[2021-10-28 12:17] LABS: Band 8 % (5-11); Burr Cells SLIGHT = 2-5 cells (100X) (0-1/hpf); Eosinophils 2 % (0-10); Lymphocytes 27 % (21-51); MDiff Complete? YES; Metamyelocyte 5 % (0-0); Monocytes 5 % (0-10); Myelocyte 1 % (0-0); Neutrophil 50 % (42-75); Platelet Morphology Comment Appears Adequate; Polychromasia SLIGHT = 2-3 cells (100X) (0-2/hpf); Reactive Lymphocytes 1 % (0-10); Schistocytes SLIGHT = 2-5 cells (100X) (0-1/hpf)
[2021-10-28 14:52] LABS: Albumin 2.7 g/dL (3.4-4.8)
[2021-10-28 14:53] LABS: Chloride 105 mmol/L (98-107); Potassium 4.4 mmol/L (3.5-5.1); Sodium 136 mmol/L (136-145)
[2021-10-28 14:54] LABS: Calcium 8.8 mg/dL (7.8-10.44)
[2021-10-28 14:55] LABS: Glucose 63 mg/dL (83-110); Protein, Total 5.7 g/dL (5.8-8.1)
[2021-10-28 14:56] LABS: Anion Gap 16 mmol/L (10-20); Bilirubin, Total 1.5 mg/dL (0.2-1.2); Carbon Dioxide 19 mmol/L (23-31)
[2021-10-28 14:57] LABS: Alkaline Phosphatase 61 U/L (40-110)
[2021-10-28 14:58] LABS: Calc. Creatinine Clearance 0 mL/min (70-130)
[2021-10-28 14:59] LABS: BUN (Urea Nitrogen) 17 mg/dL (9.8-20.1)
[2021-10-28 15:00] LABS: ALT (SGPT) 21 U/L (8-55); AST (SGOT) 25 U/L (5-34)
[2021-10-28] MEDS ORDERED: Acetaminophen 325 MG TAB PO PRN (16:26)
[2021-10-28] MEDS ORDERED: Dextrose 5% in Water 1,000 ML IV PRN (16:54)
[2021-10-28] MEDS ORDERED: Dextrose 50% Abboject 50 ML SYRINGE SLOW IVP PRN (16:54)
[2021-10-28] MEDS ORDERED: HumaLOG 300 UNITS/3 ML VIAL SC PRN ×2 (16:54)
[2021-10-28] MEDS ORDERED: Enoxaparin Sodium 100 MG/ML SYRINGE ONE (16:57)
[2021-10-28 17:05] LABS: SARS-CoV-2 NAA Rapid Test Not Detected (NotDetected)
[2021-10-28] MEDS ORDERED: Polyethylene Glycol 3350 17 GM Packet PO PRN (18:56)
[2021-10-28 19:48] VITALS: BMI 29.7
[2021-10-28] MEDS ORDERED: Atorvastatin Calcium 40 MG TAB PO SCH (21:00)
[2021-10-28] MEDS: Gabapentin 300 MG CAP PO SCH (21:39)
[2021-10-28] MEDS: Metoprolol Tartrate 50 MG TAB PO SCH (21:39)
[2021-10-28] MEDS: Enoxaparin Sodium 80 MG/0.8 ML SYRINGE SC SCH (21:39)
[2021-10-29 05:33] LABS: #Eosinphils 0.1 thou/uL (0.0-0.7); #Lymphocytes 1.5 thou/uL (1.20-3.40); #Monocytes 0.8 thou/uL (0.11-0.59); #Neutrophils 3.6 thou/uL (1.40-6.50); %Basophils 0.5 % (0.0-1.0); %Eosinophils 1.2 % (0.0-10.0); %Monocytes 12.5 % (0.0-10.0); %Neutrophils 60.8 % (42.0-75.0); Hemoglobin 10.2 g/dL (12.0-16.0); Mean Corpuscular HGB CONC 32.5 g/dL (32.0-36.0); Mean Corpuscular Hemoglobin 30.7 pg (27.0-31.0); Mean Corpuscular Volume 94.4 fL (78.0-98.0); Mean Platelet Volume 8.5 fL (7.4-10.4); Platelet Count 158 thou/uL (130-400); RBC Distribution Width 16.6 % (11.5-14.5); Red Blood Cell (RBC) Count 3.33 mill/uL (4.20-5.40)
[2021-10-29 05:56] LABS: Anion Gap 11 mmol/L (10-20); BUN (Urea Nitrogen) 14 mg/dL (9.8-20.1); Calc. Creatinine Clearance 61 mL/min (70-130); Calcium 8.8 mg/dL (7.8-10.44); Carbon Dioxide 26 mmol/L (23-31); Chloride 106 mmol/L (98-107); Glucose 77 mg/dL (83-110); Potassium 3.8 mmol/L (3.5-5.1); Sodium 139 mmol/L (136-145)
[2021-10-29] MEDS ORDERED: Cilostazol 100 MG TAB PO SCH (07:30)
[2021-10-29] MEDS ORDERED: ERGOCALCIFEROL 50 MCG PO SCH (09:00)
[2021-10-29] MEDS ORDERED: Losartan 25 MG TAB PO SCH (09:00)
[2021-10-29] MEDS ORDERED: Hydrochlorothiazide 25 MG TAB PO SCH (09:00)
[2021-10-29] MEDS ORDERED: Amlodipine 10 MG TAB PO SCH (09:00)
[2021-10-29] MEDS ORDERED: Aspirin 81 mg Enteric Coated Tablet PO SCH (09:00)
[2021-10-29] MEDS ORDERED: Famotidine 20 MG TAB PO SCH (09:00)
[2021-10-29] MEDS ORDERED: Fluticasone Propionate Nasal Spray 16 gm Bottle NASAL SCH (09:00)
[2021-10-29] MEDS: Gabapentin 300 MG CAP PO SCH (09:25)
[2021-10-29] MEDS: Metoprolol Tartrate 50 MG TAB PO SCH (09:26)
[2021-10-29] MEDS: Enoxaparin Sodium 80 MG/0.8 ML SYRINGE SC SCH (09:29)
[2021-10-29 12:29] VITALS: TEMP 99.1
[2021-10-29 16:11] VITALS: BP 102/63
[2021-10-30] MEDS ORDERED: Cholecalciferol 1,000 UNITS (25 MCG) TAB PO SCH (09:00)
== END 2021-10-29 16:10 | disposition home or self-care (01) | DRG 189 ==
LOC: ERS 10:52 → 2NO 16:26
PROVIDERS: ADMIT Student in an Organized Health Care Education/Training Program; ATTEND Student in an Organized Health Care Education/Training Program
DX: J96.01 Acute respiratory failure with hypoxia (principal); Z20.822 Contact with and (suspected) exposure to COVID-19; I82.442 Acute embolism and thrombosis of left tibial vein; U09.9 Post COVID-19 condition, unspecified; B34.9 Viral infection, unspecified; E78.5 Hyperlipidemia, unspecified; I10 Essential (primary) hypertension; E11.51 Type 2 diabetes mellitus with diabetic peripheral angiopathy without gangrene; E11.22 Type 2 diabetes mellitus with diabetic chronic kidney disease; N18.30 Chronic kidney disease, stage 3 unspecified; F32.A Depression, unspecified; F41.9 Anxiety disorder, unspecified; J30.9 Allergic rhinitis, unspecified; E66.9 Obesity, unspecified; Z68.29 Body mass index [BMI] 29.0-29.9, adult; Z99.81 Dependence on supplemental oxygen; Z88.8 Allergy status to other drugs, medicaments and biological substances; Z91.040 Latex allergy status; Z79.899 Other long term (current) drug therapy; Z79.82 Long term (current) use of aspirin; Z79.51 Long term (current) use of inhaled steroids; Z79.84 Long term (current) use of oral hypoglycemic drugs; Z98.890 Other specified postprocedural states; Z90.710 Acquired absence of both cervix and uterus
CPT/HCPCS: 36415; 36416; 71045; 71275; 80048; 80053; 83880; 84484; 85025; 85379; 87633; 93005; 94640; 94667; J1650; J7620; Q9967; U0002

== ENCOUNTER 2022-05-14 08:42 | Outpatient (CLI) | payer MEDICARE, OTHER | END 2022-05-14 08:43 | disposition home or self-care (01) | LOC: MRI 08:42 | PROVIDERS: ATTEND Nurse Practitioner Family | DX: M47.26 Other spondylosis with radiculopathy, lumbar region (principal); M47.25 Other spondylosis with radiculopathy, thoracolumbar region; M51.16 Intervertebral disc disorders with radiculopathy, lumbar region; M48.061 Spinal stenosis, lumbar region without neurogenic claudication; M48.07 Spinal stenosis, lumbosacral region; M47.817 Spondylosis without myelopathy or radiculopathy, lumbosacral region | CPT/HCPCS: 72148 ==

== ENCOUNTER 2022-06-30 10:54 | Observation (INO) | payer OTHER ==
[2022-06-30 11:42] LABS: #Lymphocytes 2.1 thou/uL (1.20-3.40); #Monocytes 0.7 thou/uL (0.11-0.59); #Neutrophils 2.6 thou/uL (1.40-6.50); %Basophils 0.2 % (0.0-1.0); %Eosinophils 0.2 % (0.0-10.0); %Monocytes 13.5 % (0.0-10.0); Hemoglobin 13.1 g/dL (12.0-16.0); Mean Corpuscular HGB CONC 31.5 g/dL (32.0-36.0); Mean Corpuscular Hemoglobin 28.8 pg (27.0-31.0); Mean Corpuscular Volume 91.3 fL (78.0-98.0); Mean Platelet Volume 9.1 fL (7.4-10.4); Platelet Count 168 thou/uL (130-400); RBC Distribution Width 14.8 % (11.5-14.5); Red Blood Cell (RBC) Count 4.55 mill/uL (4.20-5.40); White Blood Cell (WBC) Count 5.4 thou/uL (4.8-10.8)
[2022-06-30 12:00] LABS: ALT (SGPT) 9 U/L (8-55); AST (SGOT) 17 U/L (5-34); Albumin 3.8 g/dL (3.4-4.8); Alkaline Phosphatase 80 U/L (40-110); Anion Gap 16 mmol/L (10-20); BUN (Urea Nitrogen) 31 mg/dL (9.8-20.1); Bilirubin, Total 1.3 mg/dL (0.2-1.2); Calc. Creatinine Clearance 0 mL/min (70-130); Calcium 8.9 mg/dL (7.8-10.44); Carbon Dioxide 20 mmol/L (23-31); Chloride 100 mmol/L (98-107); Estimated GFR 19; Globulin 3.3 g/dL (2.4-3.5); Glucose 104 mg/dL (83-110); Magnesium 1.5 mg/dL (1.6-2.6); Potassium 3.6 mmol/L (3.5-5.1); Protein, Total 7.1 g/dL (5.8-8.1); Sodium 132 mmol/L (136-145)
[2022-06-30 12:37] LABS: CKMB 1.4 ng/mL (0-6.6)
[2022-06-30 12:38] LABS: SARS-CoV-2 NAA Rapid Test Not Detected (NotDetected)
[2022-06-30] MEDS ORDERED: Magnesium 2 GM/50 ML BAG (IN WATER) ONE (13:02)
[2022-06-30] MEDS ORDERED: Aspirin 325 MG TAB ONE (13:02)
[2022-06-30 14:05] LABS: Bilirubin Negative (Negative); Blood, Urine Negative (Negative); Clarity Clear (Clear); Glucose, Urine (Dipstick) Normal (Negative); Ketone, Urine Negative (Negative); Leukocyte Negative Leu/uL (Negative); Nitrite Negative (Negative); Protein, Urine (Dipstick) Negative (Neg-Trace); Specific Gravity, Urine 1.012 (1.002-1.036); Urobilinogen Normal mg/dL (Less than 2); pH, Urine 5.5 (5.0-9.0)
[2022-06-30] MEDS ORDERED: Acetaminophen 325 MG TAB ONE (14:19)
[2022-06-30] MEDS ORDERED: Oseltamivir 75 MG CAP PO SCH ×2 (14:30→21:00)
[2022-06-30 14:39] LABS: Lactic Acid 2.1 mmol/L (0.5-2.2)
[2022-06-30 15:00] LABS: Troponin I 0.039 ng/mL (< 0.028)
[2022-06-30] MEDS ORDERED: Dextrose 5% in Water 1,000 ML IV PRN (15:57)
[2022-06-30] MEDS ORDERED: Dextrose 50% Abboject 50 ML SYRINGE SLOW IVP PRN (15:57)
[2022-06-30] MEDS ORDERED: HumaLOG 300 UNITS/3 ML VIAL SC PRN ×2 (15:58)
[2022-06-30 16:10] VITALS: BMI 29.2
[2022-06-30] MEDS ORDERED: Sodium Chloride 0.9% 1,000 ML IV SCH (16:30)
[2022-06-30] MEDS ORDERED: traMADol HCl 50 MG TAB PO PRN (16:30)
[2022-06-30 18:00] LABS: Troponin I 0.047 ng/mL (< 0.028)
[2022-06-30] MEDS: Gabapentin 300 MG CAP PO SCH (19:45)
[2022-06-30] MEDS: Apixaban 5 MG TAB PO SCH (19:45)
[2022-06-30] MEDS: Metoprolol Tartrate 50 MG TAB PO SCH (19:45)
[2022-06-30] MEDS: Atorvastatin Calcium 40 MG TAB PO SCH (19:46)
[2022-06-30] MEDS ORDERED: Alendronate Sodium 70 mg Tablet PO SCH (21:00)
[2022-06-30] MEDS: Acetaminophen 325 MG TAB PO PRN (23:40)
[2022-07-01 05:09] LABS: ALT (SGPT) 7 U/L (8-55); AST (SGOT) 20 U/L (5-34); Albumin 3.2 g/dL (3.4-4.8); Alkaline Phosphatase 66 U/L (40-110); Anion Gap 12 mmol/L (10-20); BUN (Urea Nitrogen) 31 mg/dL (9.8-20.1); Bilirubin, Total 0.9 mg/dL (0.2-1.2); Calc. Creatinine Clearance 26 mL/min (70-130); Calcium 8.1 mg/dL (7.8-10.44); Carbon Dioxide 22 mmol/L (23-31); Chloride 106 mmol/L (98-107); Estimated GFR 22; Globulin 3.2 g/dL (2.4-3.5); Glucose 84 mg/dL (83-110); Potassium 3.7 mmol/L (3.5-5.1); Protein, Total 6.4 g/dL (5.8-8.1); Sodium 136 mmol/L (136-145)
[2022-07-01 06:29] LABS: Band 7 % (5-11); Hemoglobin 11.8 g/dL (12.0-16.0); Lymphocytes 28 % (21-51); MDiff Complete? YES; Mean Corpuscular HGB CONC 30.5 g/dL (32.0-36.0); Mean Corpuscular Hemoglobin 28.1 pg (27.0-31.0); Mean Platelet Volume 9.2 fL (7.4-10.4); Monocytes 11 % (0-10); Neutrophil 54 % (42-75); Platelet Count 147 thou/uL (130-400); RBC Distribution Width 14.9 % (11.5-14.5); White Blood Cell (WBC) Count 4.4 thou/uL (4.8-10.8)
[2022-07-01] MEDS ORDERED: Lactated Ringer's 1,000 ML IV SCH ×2 (08:30→19:00)
[2022-07-01] MEDS: Metoprolol Tartrate 50 MG TAB PO SCH ×2 (08:51→21:05)
[2022-07-01] MEDS: Gabapentin 300 MG CAP PO SCH ×2 (08:51→21:05)
[2022-07-01] MEDS: Aspirin 81 mg Enteric Coated Tablet PO SCH (08:51)
[2022-07-01] MEDS: Apixaban 5 MG TAB PO SCH (08:51)
[2022-07-01] MEDS ORDERED: Oseltamivir 6 MG/ML ORAL SUSP PO SCH (09:00)
[2022-07-01] MEDS ORDERED: Benzonatate 100 MG CAP PO PRN (16:01)
[2022-07-01] MEDS: Acetaminophen 325 MG TAB PO PRN (16:31)
[2022-07-01 18:42] LABS: Anion Gap 14 mmol/L (10-20); BUN (Urea Nitrogen) 30 mg/dL (9.8-20.1); Calc. Creatinine Clearance 33 mL/min (70-130); Calcium 8.3 mg/dL (7.8-10.44); Carbon Dioxide 17 mmol/L (23-31); Chloride 107 mmol/L (98-107); Estimated GFR 28; Glucose 113 mg/dL (83-110); Sodium 134 mmol/L (136-145)
[2022-07-01] MEDS: Atorvastatin Calcium 40 MG TAB PO SCH (21:04)
[2022-07-02 05:22] LABS: ALT (SGPT) 9 U/L (8-55); AST (SGOT) 24 U/L (5-34); Albumin 3.1 g/dL (3.4-4.8); Alkaline Phosphatase 59 U/L (40-110); Anion Gap 12 mmol/L (10-20); BUN (Urea Nitrogen) 25 mg/dL (9.8-20.1); Bilirubin, Total 0.6 mg/dL (0.2-1.2); Calc. Creatinine Clearance 37 mL/min (70-130); Calcium 8.6 mg/dL (7.8-10.44); Carbon Dioxide 22 mmol/L (23-31); Chloride 109 mmol/L (98-107); Estimated GFR 33; Glucose 82 mg/dL (83-110); Potassium 3.8 mmol/L (3.5-5.1); Protein, Total 6.1 g/dL (5.8-8.1); Sodium 139 mmol/L (136-145)
[2022-07-02 05:58] LABS: Anisocytosis SLIGHT = 6-15 cells (100X) (0-5/hpf); Burr Cells SLIGHT = 2-5 cells (100X) (0-1/hpf); Eosinophils 2 % (0-10); Hemoglobin 11.8 g/dL (12.0-16.0); Hypochromia SLIGHT = 6-15 cells (100X) (0-5/hpf); Lymphocytes 53 % (21-51); MDiff Complete? YES; Mean Corpuscular HGB CONC 30.4 g/dL (32.0-36.0); Mean Corpuscular Hemoglobin 29.4 pg (27.0-31.0); Mean Corpuscular Volume 96.7 fL (78.0-98.0); Mean Platelet Volume 10.1 fL (7.4-10.4); Monocytes 14 % (0-10); Neutrophil 31 % (42-75); Platelet Count 136 thou/uL (130-400); Platelet Morphology Comment Appears Adequate; Polychromasia SLIGHT = 2-3 cells (100X) (0-2/hpf); RBC Distribution Width 15.2 % (11.5-14.5); Red Blood Cell (RBC) Count 4.01 mill/uL (4.20-5.40); White Blood Cell (WBC) Count 3.4 thou/uL (4.8-10.8)
[2022-07-02] MEDS ORDERED: Famotidine 20 MG TAB PO PRN (07:39)
[2022-07-02] MEDS ORDERED: Lactated Ringer's 500 ML IV SCH (07:45)
[2022-07-02 08:09] VITALS: BP 151/71; TEMP 98.1
[2022-07-02] MEDS ORDERED: Famotidine 20 MG TAB PO SCH (09:00)
[2022-07-02] MEDS ORDERED: Oseltamivir 6 MG/ML ORAL SUSP PO SCH (09:00)
[2022-07-02] MEDS ORDERED: Enoxaparin Sodium 30 MG/0.3 ML SYRINGE SC SCH (09:00)
[2022-07-02] MEDS: Aspirin 81 mg Enteric Coated Tablet PO SCH (09:34)
[2022-07-02] MEDS: Gabapentin 300 MG CAP PO SCH (09:34)
[2022-07-02] MEDS: Metoprolol Tartrate 50 MG TAB PO SCH (09:34)
== END 2022-07-02 11:35 | disposition home or self-care (01) ==
LOC: ERS 10:54 → 2SW 14:25
PROVIDERS: ADMIT Student in an Organized Health Care Education/Training Program; ATTEND Student in an Organized Health Care Education/Training Program
DX: J10.2 Influenza due to other identified influenza virus with gastrointestinal manifestations (principal); N17.9 Acute kidney failure, unspecified; E87.1 Hypo-osmolality and hyponatremia; I24.8 Other forms of acute ischemic heart disease; R19.7 Diarrhea, unspecified; I12.9 Hypertensive chronic kidney disease with stage 1 through stage 4 chronic kidney disease, or unspecified chronic kidney disease; E11.22 Type 2 diabetes mellitus with diabetic chronic kidney disease; N18.30 Chronic kidney disease, stage 3 unspecified; E78.00 Pure hypercholesterolemia, unspecified; M81.0 Age-related osteoporosis without current pathological fracture; I25.10 Atherosclerotic heart disease of native coronary artery without angina pectoris; E11.51 Type 2 diabetes mellitus with diabetic peripheral angiopathy without gangrene; E66.9 Obesity, unspecified; Z68.29 Body mass index [BMI] 29.0-29.9, adult; Z86.16 Personal history of COVID-19; Z86.718 Personal history of other venous thrombosis and embolism; Z87.891 Personal history of nicotine dependence; Z79.01 Long term (current) use of anticoagulants; Z79.82 Long term (current) use of aspirin; Z79.83 Long term (current) use of bisphosphonates; Z79.899 Other long term (current) drug therapy; Z88.8 Allergy status to other drugs, medicaments and biological substances; Z91.040 Latex allergy status; Z95.1 Presence of aortocoronary bypass graft; Z20.822 Contact with and (suspected) exposure to COVID-19
CPT/HCPCS: 0240U; 51701; 71045; 80048; 80053 ×3; 81003; 82553; 82962 ×3; 83605; 83735 ×2; 84484 ×2; 85025 ×3; 85379; 87040; 93005; 93970; 94760; 96365; 96366; 96372; 99285; G0378 ×4; 36415; 36416; J1650; J3475; J7050; J7120

== ENCOUNTER 2022-11-22 14:56 | Outpatient (CLI) | payer OTHER, MEDICAID | END 2022-11-22 14:57 | disposition home or self-care (01) | LOC: BICMAMMO 14:56 | PROVIDERS: ATTEND Family Medicine | DX: M81.0 Age-related osteoporosis without current pathological fracture (principal); M85.89 Other specified disorders of bone density and structure, multiple sites | CPT/HCPCS: 77080 ==

== ENCOUNTER 2023-10-31 10:19 | Outpatient (CLI) | payer OTHER, MEDICAID | END 2023-10-31 10:20 | disposition home or self-care (01) | LOC: BICRAD 10:19 | PROVIDERS: ATTEND Neurological Surgery | DX: M48.062 Spinal stenosis, lumbar region with neurogenic claudication (principal); M47.816 Spondylosis without myelopathy or radiculopathy, lumbar region; M43.17 Spondylolisthesis, lumbosacral region | CPT/HCPCS: 72120 ==

== ENCOUNTER 2023-11-03 17:13 | Observation (INO) | payer OTHER, MEDICAID ==
[2023-11-03 17:42] LABS: #Eosinphils 0.2 thou/uL (0.0-0.7); %Basophils 0.3 % (0.0-1.0); %Lymphocytes 44.2 % (21.0-51.0); %Monocytes 12.8 % (0.0-10.0); %Neutrophils 39.4 % (42.0-75.0); Hematocrit 39.1 % (36.0-47.0); Hemoglobin 12.3 g/dL (12.0-16.0); Mean Corpuscular HGB CONC 31.5 g/dL (32.0-36.0); Mean Corpuscular Hemoglobin 27.8 pg (27.0-31.0); Mean Corpuscular Volume 88.5 fl (78.0-98.0); Mean Platelet Volume 10.2 fL (7.4-10.4); Platelet Count 278 10x3/uL (130-400); RBC Distribution Width 15.7 % (11.5-14.5); Red Blood Cell (RBC) Count 4.42 mill/uL (4.20-5.40); White Blood Cell (WBC) Count 7.7 10x3/uL (4.8-10.8)
[2023-11-03 18:06] LABS: ALT (SGPT) 9 U/L (8-55); AST (SGOT) 14 U/L (5-34); Albumin 3.9 g/dL (3.4-4.8); Alkaline Phosphatase 94 U/L (40-110); Anion Gap 14 mmol/L (10-20); BUN (Urea Nitrogen) 31 mg/dL (9.8-20.1); Bilirubin, Total 0.9 mg/dL (0.2-1.2); Calc. Creatinine Clearance 0 mL/min (70-130); Calcium 9.6 mg/dL (7.8-10.44); Carbon Dioxide 20 mmol/L (23-31); Chloride 107 mmol/L (98-107); Estimated GFR 20; Globulin 3.8 g/dL (2.4-3.5); Glucose 79 mg/dL (83-110); Lipase 24 U/L (8-78); Potassium 4.3 mmol/L (3.5-5.1); Protein, Total 7.7 g/dL (5.8-8.1); Sodium 137 mmol/L (136-145)
[2023-11-03 18:09] LABS: Troponin I 0.029 ng/mL (< 0.028)
[2023-11-03] MEDS ORDERED: Aspirin Chewable 81 MG TAB ONE (18:35)
[2023-11-03] MEDS ORDERED: Furosemide 20 MG (2 mL) VIAL ONE (18:35)
[2023-11-03] MEDS ORDERED: Ondansetron ODT 4 MG TAB PO PRN (19:58)
[2023-11-03] MEDS ORDERED: Calcium Carbonate 500 MG ChewTAB PO PRN (19:58)
[2023-11-03] MEDS ORDERED: Acetaminophen 325 MG TAB PO PRN (20:36)
[2023-11-03 20:47] LABS: Troponin I 0.024 ng/mL (< 0.028)
[2023-11-03 20:50] LABS: Magnesium 1.8 mg/dL (1.6-2.6); Phosphorus 3.5 mg/dL (2.3-4.7)
[2023-11-03] MEDS ORDERED: Dextrose 5% in Water 1,000 ML IV PRN (20:51)
[2023-11-03] MEDS ORDERED: Dextrose 50% Abboject 50 ML SYRINGE SLOW IVP PRN (20:51)
[2023-11-03] MEDS ORDERED: Glucagon 1 MG/ML KIT IM PRN (20:51)
[2023-11-03] MEDS ORDERED: HumaLOG 300 UNITS/3 ML VIAL SC PRN (20:51)
[2023-11-03] MEDS ORDERED: Atorvastatin Calcium 40 MG TAB PO SCH (21:00)
[2023-11-03] MEDS ORDERED: Lidocaine 2% Viscous Solution 10 ML, Aluminum & Magnesium Hydroxide 30 ML SSW SCH (21:00)
[2023-11-03] MEDS ORDERED: Famotidine/PF 20 mg/2ml Vial SLOW IVP SCH (21:00)
[2023-11-03] MEDS ORDERED: Famotidine 20 MG TAB PO SCH (21:00)
[2023-11-03 21:05] LABS: Hemoglobin A1c 6.6 % (4.0-6.0)
[2023-11-03] MEDS: Gabapentin 300 MG CAP PO SCH (21:58)
[2023-11-03] MEDS: Heparin 5,000 UNITS/ML VIAL SC SCH (22:00)
[2023-11-03 22:19] VITALS: BMI 30.2
[2023-11-04 04:51] LABS: #Eosinphils 0.3 thou/uL (0.0-0.7); #Monocytes 0.9 thou/uL (0.11-0.59); #Neutrophils 2.4 thou/uL (1.40-6.50); %Basophils 0.6 % (0.0-1.0); %Eosinophils 3.9 % (0.0-10.0); %Lymphocytes 45.3 % (21.0-51.0); %Monocytes 13.3 % (0.0-10.0); %Neutrophils 36.6 % (42.0-75.0); Hematocrit 39.6 % (36.0-47.0); Hemoglobin 12.2 g/dL (12.0-16.0); Mean Corpuscular HGB CONC 30.8 g/dL (32.0-36.0); Mean Corpuscular Hemoglobin 26.9 pg (27.0-31.0); Mean Corpuscular Volume 87.4 fl (78.0-98.0); Mean Platelet Volume 10.5 fL (7.4-10.4); Platelet Count 292 10x3/uL (130-400); RBC Distribution Width 15.7 % (11.5-14.5); Red Blood Cell (RBC) Count 4.53 mill/uL (4.20-5.40); White Blood Cell (WBC) Count 6.6 10x3/uL (4.8-10.8)
[2023-11-04 05:15] LABS: Anion Gap 14 mmol/L (10-20); BUN (Urea Nitrogen) 31 mg/dL (9.8-20.1); Calc. Creatinine Clearance 26 mL/min (70-130); Calcium 9.6 mg/dL (7.8-10.44); Carbon Dioxide 24 mmol/L (23-31); Cardiac Risk 2.8 (Less than 4.5); Chloride 105 mmol/L (98-107); Cholesterol 171 mg/dl (< 200 Desired); Estimated GFR 21; Glucose 65 mg/dL (83-110); HDL Cholesterol 61 mg/dL (>60 Neg Risk); LDL Cholesterol, Calculated 81 mg/dL; Potassium 3.8 mmol/L (3.5-5.1); Sodium 139 mmol/L (136-145); Triglycerides 144 mg/dL (Less than 150)
[2023-11-04] MEDS ORDERED: Cilostazol 100 MG TAB PO SCH (07:30)
[2023-11-04] MEDS: Gabapentin 300 MG CAP PO SCH (08:34)
[2023-11-04] MEDS: Heparin 5,000 UNITS/ML VIAL SC SCH (08:36)
[2023-11-04] MEDS ORDERED: Amlodipine 5 MG TAB PO SCH (09:00)
[2023-11-04] MEDS ORDERED: Losartan 25 MG TAB PO SCH (09:00)
[2023-11-04] MEDS ORDERED: Aspirin 81 mg Enteric Coated Tablet PO SCH (09:00)
[2023-11-04] MEDS ORDERED: Fluticasone Propionate Nasal Spray 16 gm Bottle NASAL SCH (09:00)
[2023-11-04] MEDS ORDERED: Cholecalciferol 1,000 UNITS (25 MCG) TAB PO SCH (09:00)
[2023-11-04] MEDS ORDERED: Hydrochlorothiazide 25 MG TAB PO SCH (09:00)
[2023-11-04] MEDS ORDERED: Magnesium Oxide 250 MG TAB PO SCH (09:00)
[2023-11-04] MEDS ORDERED: Regadenoson 0.4 MG/5 ML SYRINGE ONE (10:46)
[2023-11-04 12:49] VITALS: BP 171/86; TEMP 98.6
== END 2023-11-04 16:05 | disposition home or self-care (01) ==
LOC: ERS 17:13 → 2NO 19:02 → INTOOBSV 19:02
PROVIDERS: ADMIT Student in an Organized Health Care Education/Training Program; ATTEND Student in an Organized Health Care Education/Training Program
PROC: B24BZZZ Ultrasonography of Heart with Aorta (ICD-10-PCS; principal; 2023-11-04)
DX: R07.89 Other chest pain (principal); I12.9 Hypertensive chronic kidney disease with stage 1 through stage 4 chronic kidney disease, or unspecified chronic kidney disease; E11.22 Type 2 diabetes mellitus with diabetic chronic kidney disease; N18.4 Chronic kidney disease, stage 4 (severe); E78.5 Hyperlipidemia, unspecified; E11.51 Type 2 diabetes mellitus with diabetic peripheral angiopathy without gangrene; M81.0 Age-related osteoporosis without current pathological fracture; F32.9 Major depressive disorder, single episode, unspecified; E66.9 Obesity, unspecified; R79.89 Other specified abnormal findings of blood chemistry; Z68.30 Body mass index [BMI] 30.0-30.9, adult; Z86.718 Personal history of other venous thrombosis and embolism; Z79.899 Other long term (current) drug therapy; Z79.82 Long term (current) use of aspirin; Z79.51 Long term (current) use of inhaled steroids; Z91.040 Latex allergy status; Z88.5 Allergy status to narcotic agent; Z87.891 Personal history of nicotine dependence
CPT/HCPCS: 71045; 78452; 80048; 80061; 82962; 83036; 83690; 83735; 83880; 84100; 84484 ×2; 85025; 93005; 93017; 93306; 93971; 94760; 96372 ×2; 96374; 99285; A9502; G0378 ×2; J2785; 36415; 36416; 80053; 84443; J1644; J1940

== ENCOUNTER 2024-07-18 13:34 | Outpatient (CLI) | payer OTHER | END 2024-07-18 13:35 | disposition home or self-care (01) | LOC: MRI 13:34 | PROVIDERS: ATTEND Nurse Practitioner Family | DX: M54.16 Radiculopathy, lumbar region (principal); M48.061 Spinal stenosis, lumbar region without neurogenic claudication; M51.27 Other intervertebral disc displacement, lumbosacral region | CPT/HCPCS: 72148 ==

== ENCOUNTER 2025-06-28 16:45 | Inpatient (IN) | payer OTHER ==
[2025-06-28] MEDS ORDERED: Nitroglycerin 2% Ointment 1 INCH/1 GM Packet ONE (17:12)
[2025-06-28 17:24] LABS: #Basophils Less than 0.03 10x3/uL (0.0-0.2); #Eosinophils 0.11 10x3/uL (0.0-0.7); #Monocytes 0.86 10x3/uL (0.11-0.59); #Neutrophils 1.85 10x3/uL (1.40-6.50); %Basophils 0.4 % (0.0-1.0); %Eosinophils 2.2 % (0.0-10.0); %Lymphocytes 42.3 % (21.0-51.0); %Monocytes 17.4 % (0.0-10.0); %Neutrophils 37.5 % (42.0-75.0); Hematocrit 38.8 % (36.0-47.0); Hemoglobin 12.2 g/dL (12.0-16.0); Mean Corpuscular Hemoglobin 27.3 pg (27.0-31.0); Mean Corpuscular Volume 86.8 fL (78.0-98.0); Platelet Count 283 10x3/uL (130-400); Red Blood Cell (RBC) Count 4.47 mill/uL (4.20-5.40); White Blood Cell (WBC) Count 4.94 10x3/uL (4.8-10.8)
[2025-06-28 17:47] LABS: ALT (SGPT) 8 U/L (Less than 34); AST (SGOT) 25 U/L (11-34); Albumin 3.6 g/dL (3.1-4.5); Alkaline Phosphatase 94 U/L (40-110); Anion Gap 19 mmol/L (10-20); BUN (Urea Nitrogen) 21 mg/dL (9.8-20.1); Bilirubin, Total 0.7 mg/dL (0.3-1.2); Calc. Creatinine Clearance 0 mL/min (70-130); Calcium 9.2 mg/dL (7.8-10.44); Carbon Dioxide 21 mmol/L (23-31); Chloride 105 mmol/L (98-107); Globulin 4.2 g/dL (2.4-3.5); Glucose 121 mg/dL (83-110); Potassium 3.6 mmol/L (3.5-5.1); Sodium 141 mmol/L (136-145)
[2025-06-28] MEDS ORDERED: Furosemide 40 MG (4 mL) VIAL ONE (19:38)
[2025-06-28] MEDS ORDERED: Glucagon 1 MG/ML KIT IM PRN (20:40)
[2025-06-28] MEDS ORDERED: Dextrose 50% Abboject 50 ML SYRINGE SLOW IVP PRN (20:40)
[2025-06-28 21:49] VITALS: BMI 31.0
[2025-06-28] MEDS: Heparin 5,000 UNITS/ML VIAL SC SCH (21:50)
[2025-06-28] MEDS: Acetaminophen 325 MG TAB PO PRN (23:22)
[2025-06-29 03:57] LABS: #Basophils 0.04 10x3/uL (0.0-0.2); #Eosinophils 0.19 10x3/uL (0.0-0.7); #Monocytes 0.92 10x3/uL (0.11-0.59); #Neutrophils 2.04 10x3/uL (1.40-6.50); %Basophils 0.7 % (0.0-1.0); %Eosinophils 3.5 % (0.0-10.0); %Lymphocytes 41.2 % (21.0-51.0); %Monocytes 16.8 % (0.0-10.0); %Neutrophils 37.4 % (42.0-75.0); Hematocrit 38.4 % (36.0-47.0); Hemoglobin 11.7 g/dL (12.0-16.0); Mean Corpuscular Hemoglobin 27.4 pg (27.0-31.0); Mean Corpuscular Volume 89.9 fL (78.0-98.0); Platelet Count 261 10x3/uL (130-400); Red Blood Cell (RBC) Count 4.27 mill/uL (4.20-5.40); White Blood Cell (WBC) Count 5.46 10x3/uL (4.8-10.8)
[2025-06-29 04:28] LABS: ALT (SGPT) 7 U/L (Less than 34); AST (SGOT) 25 U/L (11-34); Albumin 3.3 g/dL (3.1-4.5); Alkaline Phosphatase 87 U/L (40-110); Anion Gap 18 mmol/L (10-20); BUN (Urea Nitrogen) 19 mg/dL (9.8-20.1); Bilirubin, Total 0.7 mg/dL (0.3-1.2); Calc. Creatinine Clearance 29 mL/min (70-130); Calcium 8.9 mg/dL (7.8-10.44); Carbon Dioxide 20 mmol/L (23-31); Chloride 106 mmol/L (98-107); Globulin 4.1 g/dL (2.4-3.5); Glucose 77 mg/dL (83-110); Magnesium 2.2 mg/dL (1.6-2.6); Potassium 3.6 mmol/L (3.5-5.1); Sodium 140 mmol/L (136-145)
[2025-06-29] MEDS: Aspirin 81 mg Enteric Coated Tablet PO SCH (08:14)
[2025-06-29] MEDS: Cholecalciferol 1,000 UNITS (25 MCG) TAB PO SCH (08:15)
[2025-06-29] MEDS: Magnesium Oxide 400 MG TAB PO SCH (08:15)
[2025-06-29] MEDS: Gabapentin 300 MG CAP PO SCH (08:15)
[2025-06-29] MEDS: Furosemide 20 MG (2 mL) VIAL SLOW IVP SCH (08:27)
[2025-06-29] MEDS: Transdermal Patch Removal TOP SCH (22:30)
[2025-06-30 04:10] LABS: #Basophils Less than 0.03 10x3/uL (0.0-0.2); #Eosinophils 0.15 10x3/uL (0.0-0.7); #Monocytes 0.79 10x3/uL (0.11-0.59); #Neutrophils 1.81 10x3/uL (1.40-6.50); %Basophils 0.4 % (0.0-1.0); %Eosinophils 3.0 % (0.0-10.0); %Lymphocytes 45.0 % (21.0-51.0); %Monocytes 15.7 % (0.0-10.0); %Neutrophils 35.9 % (42.0-75.0); Hematocrit 37.8 % (36.0-47.0); Hemoglobin 11.6 g/dL (12.0-16.0); Mean Corpuscular Hemoglobin 26.8 pg (27.0-31.0); Mean Corpuscular Volume 87.3 fL (78.0-98.0); Platelet Count 266 10x3/uL (130-400); Red Blood Cell (RBC) Count 4.33 mill/uL (4.20-5.40); White Blood Cell (WBC) Count 5.04 10x3/uL (4.8-10.8)
[2025-06-30 04:38] LABS: ALT (SGPT) 7 U/L (Less than 34); AST (SGOT) 21 U/L (11-34); Albumin 3.1 g/dL (3.1-4.5); Alkaline Phosphatase 89 U/L (40-110); Anion Gap 14 mmol/L (10-20); BUN (Urea Nitrogen) 20 mg/dL (9.8-20.1); Bilirubin, Total 0.8 mg/dL (0.3-1.2); Calc. Creatinine Clearance 28 mL/min (70-130); Calcium 9.2 mg/dL (7.8-10.44); Carbon Dioxide 24 mmol/L (23-31); Chloride 105 mmol/L (98-107); Globulin 3.8 g/dL (2.4-3.5); Glucose 76 mg/dL (83-110); Potassium 3.3 mmol/L (3.5-5.1); Sodium 140 mmol/L (136-145)
[2025-07-01 05:40] LABS: #Basophils 0.03 10x3/uL (0.0-0.2); #Eosinophils 0.17 10x3/uL (0.0-0.7); #Monocytes 1.01 10x3/uL (0.11-0.59); #Neutrophils 1.62 10x3/uL (1.40-6.50); %Basophils 0.6 % (0.0-1.0); %Eosinophils 3.1 % (0.0-10.0); %Lymphocytes 47.4 % (21.0-51.0); %Monocytes 18.7 % (0.0-10.0); %Neutrophils 30.0 % (42.0-75.0); Hematocrit 36.1 % (36.0-47.0); Hemoglobin 11.3 g/dL (12.0-16.0); Mean Corpuscular Hemoglobin 27.1 pg (27.0-31.0); Mean Corpuscular Volume 86.6 fL (78.0-98.0); Platelet Count 270 10x3/uL (130-400); Red Blood Cell (RBC) Count 4.17 mill/uL (4.20-5.40); White Blood Cell (WBC) Count 5.40 10x3/uL (4.8-10.8)
[2025-07-01 05:56] LABS: ALT (SGPT) 7 U/L (Less than 34); AST (SGOT) 22 U/L (11-34); Albumin 3.1 g/dL (3.1-4.5); Alkaline Phosphatase 84 U/L (40-110); Anion Gap 16 mmol/L (10-20); BUN (Urea Nitrogen) 23 mg/dL (9.8-20.1); Bilirubin, Total 0.8 mg/dL (0.3-1.2); Calc. Creatinine Clearance 27 mL/min (70-130); Calcium 9.5 mg/dL (7.8-10.44); Carbon Dioxide 21 mmol/L (23-31); Chloride 108 mmol/L (98-107); Globulin 3.6 g/dL (2.4-3.5); Glucose 74 mg/dL (83-110); Potassium 3.8 mmol/L (3.5-5.1); Sodium 141 mmol/L (136-145)
[2025-07-01] MEDS: predniSONE 20 MG TAB PO SCH (10:13)
[2025-07-01 14:55] VITALS: BP 161/74; TEMP 97.9
[2025-07-02] MEDS ORDERED: NIFEdipine XL 30 MG ER.TAB PO SCH (09:00)
== END 2025-07-01 19:02 | disposition home or self-care (01) | DRG 190 ==
LOC: ERS 16:45 → PCU 19:28 → OBSVTOIN 06-30 10:35 → OBS 06-30 17:17
PROVIDERS: ADMIT Student in an Organized Health Care Education/Training Program; ATTEND Student in an Organized Health Care Education/Training Program
DX: J43.9 Emphysema, unspecified (principal); I26.99 Other pulmonary embolism without acute cor pulmonale; J96.01 Acute respiratory failure with hypoxia; N18.4 Chronic kidney disease, stage 4 (severe); I13.0 Hypertensive heart and chronic kidney disease with heart failure and stage 1 through stage 4 chronic kidney disease, or unspecified chronic kidney disease; I27.20 Pulmonary hypertension, unspecified; E11.9 Type 2 diabetes mellitus without complications; Z98.890 Other specified postprocedural states; I16.0 Hypertensive urgency; Z88.8 Allergy status to other drugs, medicaments and biological substances; Z91.040 Latex allergy status; Z79.899 Other long term (current) drug therapy; I50.9 Heart failure, unspecified
CPT/HCPCS: 36415; 36416; 71045; 71250; 80053; 83735; 83880; 84443; 84484; 85025; 85379; 93005; 93306; 94640; 96372; 96374; 96376; G0378; J1644; J1940; J7512